=== PATIENT | female | born 1945 | race Caucasian/White ===

== ENCOUNTER 2018-08-27 12:25 | Observation (INO) | payer BC, MEDICARE ==
[2018-08-27] MEDS ORDERED: POTASSIUM CHLORIDE 20 MEQ TABLET.SA PO ONE ×3 (12:52→18:00)
--- NOTE | 2018-08-27 12:53 | ERNOTE ---
Medical Problem HPI - General Chief Complaint: General Assessment Time Seen by Provider: 08/27/18 12:42 Source: patient Exam Limitations: no limitations - Immun/Allergies/Home Medications Immunizations: IMMUNIZATION HX Immunizations Up to Date Yes History of Influenza Vaccine Yes Hx Pneumococcal Vaccination Yes Allergies/Adverse Reactions: Allergies azithromycin [From Zithromax Z-Rocky] Allergy (Mild, Verified 08/27/18 12:35) Hives sulfamethoxazole [From Bactrim] Adverse Reaction (Mild, Verified 08/27/18 12:35) "skin crawling" trimethoprim [From Bactrim] Adverse Reaction (Mild, Verified 08/27/18 12:35) "skin crawling" Home Medications: HOME MEDICATIONS Multivitamins [Multivitamin Pierre] 1 cap PO DAILY 02/13/15 [Last Taken Unknown] blood sugar diagnostic strips See Dose Instructions .ROUTE .MEDSUPPLY #20 ea [Last Taken Unknown] clotrimazole 1 % topical cream 1 applic TP BID 02/21/18 [Last Taken Unknown] ferrous sulfate 325 mg (65 mg iron) tablet 325 mg PO DAILY tab 02/21/18 [Last Taken Unknown] lancets 23 gauge See Dose Instructions .ROUTE .MEDSUPPLY #25 ea 02/21/18 [Last Taken Unknown] melatonin 5 mg capsule 5 mg PO DAILY PRN cap 02/21/18 [Last Taken Unknown] biotin 5,000 mcg sublingual tablet 5,000 mcg SL DAILY 02/23/18 [Last Taken Unknown] albuterol sulfate HFA 90 mcg/actuation aerosol inhaler 2 puff IH Q3H PRN #8.5 g 05/04/18 [Last Taken Unknown] fluticasone 44 mcg/actuation HFA aerosol inhaler 2 inh IH BID #10.6 g 05/04/18 [Last Taken Unknown] fluticasone 50 mcg/actuation nasal spray,suspension 2 spray BRIGITTE DAILY #9.9 g 05/04/18 [Last Taken Unknown] ibuprofen 800 mg tablet 800 mg PO TID-QID PRN #30 tab 05/04/18 [Last Taken Unknown] loratadine 10 mg tablet 10 mg PO DAILY #30 tab 05/04/18 [Last Taken Unknown] lovastatin 40 mg tablet 40 mg PO QPM #30 tab 05/04/18 [Last Taken Unknown] diclofenac potassium 50 mg tablet 50 mg PO BID #60 tab 10/25/18 [Last Taken Unknown] promethazine 6.25 mg-codeine 10 mg/5 mL syrup 5 ml PO Q6H PRN #118 ml 06/17/18 [Last Taken Unknown] sertraline 50 mg tablet 50 mg PO DAILY #30 tab 07/06/18 [Last Taken Unknown] alprazolam 0.25 mg tablet 0.25 mg PO BID PRN #30 tab 07/20/18 [Last Taken Unknown] fexofenadine 60 mg-pseudoephedrine ER 120 mg tablet,ext.release,12 hr 1 tab PO BID PRN #60 tab 07/20/18 [Last Taken Unknown] ranitidine 300 mg tablet 300 mg PO HS #30 tab 08/09/18 [Last Taken Unknown] cefdinir 300 mg capsule 300 mg PO BID 10 Days #20 cap 08/26/18 [Last Taken Unknown] levothyroxine 25 mcg tablet 25 mcg PO DAILY #30 tab 08/26/18 [Last Taken Unknown] potassium chloride ER 20 mEq tablet,extended release 20 meq PO TID #90 tab 08/26/18 [Last Taken Unknown] - History of Present History Narrative: Patient has not felt well since 08/13/18 (two weeks), slight cough, no appetite, no vomiting or diarrhea. She saw her doctor yesterday, had labs drawn and was started on cefdinir for sinusitis (did not have the CXR done that was ordered nor was able to give urine sample). She has had two doses of the antibiotic which she tolerated well except for loose stools. She was later called and told that her potassium was low too, tried potassium pills and liquid (without food) and has not been able to keep those down. She is coming to the ER for treatment of her low potassium Review of Systems - Review of Systems Constitutional: Present: weakness, malaise. Absent: fever, chills ENT: Absent: nose congestion, sore throat Respiratory: Present: cough. Absent: shortness of breath Cardiology: Absent: chest pain, palpitations Gastrointestinal/Abdominal: Absent: nausea, vomiting, diarrhea, abdominal pain Genitourinary: Absent: frequency, dysuria Neurological: Absent: headache Medical History (Last Reviewed 08/27/18 @ 14:22 by Loida Hope MD) Anxiety (Acute) worsening symptoms Anxiety disorder Onset Date: Unknown History of pelvic fracture Onset Date: Unknown Type 2 diabetes mellitus Onset Date: Unknown Alcoholism Onset Date: Unknown Arthritis Onset Date: Unknown Asthma, intermittent Onset Date: ~05/31/12 COPD (chronic obstructive pulmonary disease) Onset Date: ~04/03/14 GERD (gastroesophageal reflux disease) Onset Date: Unknown Hypovitaminosis D Onset Date: Unknown Anemia Onset Date: ~05/12/12 [place] teeth extracted Onset Date: ~1998 Surgical History: Surgical History (Last Reviewed 08/27/18 @ 14:22 by Loida Hope MD) History of total knee arthroplasty Onset Date: ~2003 left 2003, right 2014 Hx of cataract surgery Onset Date: Unknown bilateral eyes Family History: Family History (Last Reviewed 08/27/18 @ 12:36 by Susan Gilman RN) Father Heart disease at age 70's Mother Hypertension Cancer Social History: Preferred Language Estonian Smoking Status Never smoker Abuse History No History of abuse Psych History Hx of Anxiety,Hx of Violent Behavior,Currently on Meds Alcohol Use none Drug Use none (Last Updated 08/26/18 @ 12:59 by Jazmin Bañuelos MD) No Social History Section defined Physical Exam - Physical Exam General Appearance: Present: wd/wn, alert, no apparent distress Eye Exam: Normal inspection: bilateral Ears, Nose, Throat: Present: normal ENT inspection, normal pharynx Respiratory: Present: no respiratory distress, normal breath sounds, no accessory muscle use, chest nontender, lungs clear Cardiovascular/Chest: Present: regular rate, rhythm, no murmur, normal peripheral pulses Gastrointestinal/Abdominal: Present: normal bowel sounds, nontender, nondistended, soft Neurological Exam: Present: alert, oriented, normal mood/affect Skin Exam: Present: normal color, warm/dry Progress - Results and Orders Patient's Lab Results:: I have reviewed the patient's lab results. - Vital Signs Patient's Vital Signs:: I have reviewed the patient's vital signs. Vital Signs: Vital Signs 08/27/18 12:30 08/27/18 12:38 Temperature 36.2 C Pulse Rate 115 H 121 H Respiratory Rate 18 Blood Pressure 109/74 O2 Sat by Pulse Oximetry 92 L - EKG EKG: NSR - sinustachycardia, RBBB - incomplete, nonspecific ST T wave changes EKG read: Interp. by me - X-Ray X-Ray #1 X-Ray: chest - right middle lobe infiltrate Interpretation: Reviewed by me - Progress/Reassessment Chief Complaint: General Assessment Progress Note-Subjective: 08/27/18 14:00 discussed test results with patient,offered admission, patient agreed was able to tolerate KCl crushed with apple sauce PSI score 61, class II 08/27/18 14:04 discussed with irina Miranda to admit for observation as patient is hypoxic start levaquin per protocol as patient is allergic to zithromax irina to give oral steroids Departure Clinical Impression: Hypoxemia, Hypokalemia Pneumonia Qualifiers: Pneumonia type: due to unspecified organism Laterality: right Lung location: middle lobe of lung Qualified Code(s): J18.1 - Lobar pneumonia, unspecified organism - Departure Disposition: Still a patient Condition: Stable
[2018-08-27 13:03] LABS: Hematocrit 35.1 % (37.0-47.0); Hemoglobin 12.4 gm/dL (12.5-16.0); Mean Cell Volume 87.8 fl (78-100); Mean Corpuscular Hgb Conc 35.3 g/dl (32-36); Mean Platelet Volume 10.1 fl (8-12.5); Neutrophil # 11.4 K/mm3 (1.3-6.0); Neutrophil % 79.5 % (42-75.0); Platelet Count 461 K/mm3 (150-450); Red Cell Distribution Width 12.8 % (11.5-14.0); White Blood Count 14.3 K/mm3 (4.0-10.5)
[2018-08-27 13:20] LABS: Albumin * 2.7 gm/dl (3.4-5.0); Anion Gap 16.8 mmol/L (6.8-13.8); BUN/Creatinine Ratio 12.8 (9.0-21.6); Bilirubin, Total 0.6 mg/dL (0.0-1.1); Ca. Corrected For Albumin 9.6 mg/dL (8.4-10.2); Calcium * 8.9 mg/dL (7.9-10.9); Carbon Dioxide 20.9 mmol/L (24-32.6); Potassium 2.7 mmol/L (3.4-4.6); Total Protein 7.7 gm/dL (6.2-8.2)
[2018-08-27 13:29] LABS: Urine Bilirubin 1 mg/dl (NEGATIVE); Urine Blood Negative /ul (NEGATIVE); Urine Ketone 5 mg/dL (NEGATIVE); Urine Nitrite Negative (NEGATIVE); Urine Protein 15 mg/dL (NEGATIVE); Urine Specific Gravity 1.025 SP.GR. (1.005-1.010); Urine Urobilinogen Normal (NORMAL)
[2018-08-27 13:41] LABS: Urine Appearance Clear (CLEAR); Urine Bacteria TRACE; Urine Color Yellow; Urine RBC 0-5 /hpf (0-5); Urine WBC 0-5 /hpf (0-5)
[2018-08-27 13:42] LABS: Urine Mucus Many - 3+
[2018-08-27] MEDS ORDERED: ALBUTEROL SULFATE 2.5 MG/0.5 ML VIAL.NEB IH ONE (14:12)
[2018-08-27] MEDS ORDERED: predniSONE 20 MG TABLET PO ONE (14:12)
[2018-08-27] MEDS ORDERED: LEVOFLOXACIN IN DEXTROSE 5 % 750 MG/150 ML BAG IV SCH (14:30)
--- NOTE | 2018-08-27 15:32 | HP ---
Chief Complaint - Chief Complaint Date of Service: 08/27/18 Time of Service: 15:32 Chief Complaint: low potassium History of Present Illness: Patient states her symptoms began on August 13, 2018 when she noted not feeling well with decreased appetite, and fever of 101. She saw her doctor, Dr. Bañuelos yesterday and was started on Ceftin ear for sinusitis. Chest x-ray was ordered but but was not completed. She has had 2 doses of the antibiotic, she tolerated it well except for loose stools. Her doctor also informed her that her potassium level was low and was prescribed potassium supplementation she did not tolerate the medication and was vomiting. She presented to the emergency room today because of her low potassium. On presentation chest x-ray was done which showed a right middle lobe infiltrate. In the emergency department she was found to be hypoxic with an oxygen level of 89% on room air. She does not use oxygen at home. She states she had been having shortness of breath with exertion at home. She was given 40 mEq of potassium in the emergency room crushed in applesauce and tolerated it well. Medical History (Last Reviewed 08/27/18 @ 15:40 by Rachel Ayala RN) Anxiety (Acute) worsening symptoms Anxiety disorder Onset Date: Unknown History of pelvic fracture Onset Date: Unknown Type 2 diabetes mellitus Onset Date: Unknown Alcoholism Onset Date: Unknown Arthritis Onset Date: Unknown Asthma, intermittent Onset Date: ~05/31/12 COPD (chronic obstructive pulmonary disease) Onset Date: ~04/03/14 GERD (gastroesophageal reflux disease) Onset Date: Unknown Hypovitaminosis D Onset Date: Unknown Anemia Onset Date: ~05/12/12 [place] teeth extracted Onset Date: ~1998 Surgical History: Surgical History (Last Reviewed 08/27/18 @ 15:40 by Rachel Ayala RN) History of total knee arthroplasty Onset Date: ~2003 left 2004, right 2014 Hx of cataract surgery Onset Date: Unknown bilateral eyes Family History: Family History (Last Reviewed 08/27/18 @ 15:40 by Rachel Ayala RN) Father Heart disease at age 70's Mother Hypertension Cancer Social History: Preferred Language Romanian Smoking Status Never smoker Abuse History No History of abuse Psych History Hx of Anxiety,Hx of Violent Behavior,Currently on Meds Alcohol Use none Drug Use none (Last Updated 08/26/18 @ 12:59 by Jazmin Bañuelos MD) No Social History Section defined Review Of Systems (GEN) - Review of Systems Generalized/Overall Review: Present: Malaise EENTM: Present: No Symptoms Reported Respiratory: Present: Shortness of Breath. Absent: Cough Cardiac: Absent: Chest Pain Abdominal: Absent: Nausea, Vomiting, Abdominal Pain Genitourinary: Present: No Symptoms Reported Neurological: Absent: Headache Immunizations: IMMUNIZATION HX Immunizations Up to Date Yes History of Influenza Vaccine Yes Hx Pneumococcal Vaccination Yes Allergies/Adverse Reactions: Allergies Allergy/AdvReac Type Severity Reaction Status Date / Time azithromycin Allergy Mild Hives Verified 08/27/18 12:35 [From Zithromax Z-Rocky] sulfamethoxazole AdvReac Mild "skin Verified 08/27/18 12:35 [From Bactrim] crawling" trimethoprim [From Bactrim] AdvReac Mild "skin Verified 08/27/18 12:35 crawling" Home Medications: HOME MEDICATIONS Multivitamins [Multivitamin Pierre] 1 cap PO DAILY 02/13/15 [Last Taken Unknown] blood sugar diagnostic strips See Dose Instructions .ROUTE .MEDSUPPLY #20 ea 02/21/18 [Last Taken Unknown] clotrimazole 1 % topical cream 1 applic TP BID 02/21/18 [Last Taken Unknown] ferrous sulfate 325 mg (65 mg iron) tablet 325 mg PO DAILY tab 02/21/18 [Last Taken Unknown] lancets 23 gauge See Dose Instructions .ROUTE .MEDSUPPLY #25 ea 02/21/18 [Last Taken Unknown] melatonin 5 mg capsule 5 mg PO DAILY PRN cap 02/21/18 [Last Taken Unknown] biotin 5,000 mcg sublingual tablet 5,000 mcg SL DAILY 02/23/18 [Last Taken Unknown] albuterol sulfate HFA 90 mcg/actuation aerosol inhaler 2 puff IH Q3H PRN #8.5 g 05/04/18 [Last Taken Unknown] fluticasone 44 mcg/actuation HFA aerosol inhaler 2 inh IH BID #10.6 g 05/04/18 [ Last Taken Unknown] fluticasone 50 mcg/actuation nasal spray,suspension 2 spray BRIGITTE DAILY #9.9 g 05/04/18 [Last Taken Unknown] ibuprofen 800 mg tablet 800 mg PO TID-QID PRN #30 tab 05/04/18 [Last Taken Unknown] loratadine 10 mg tablet 10 mg PO DAILY #30 tab 05/04/18 [Last Taken Unknown] lovastatin 40 mg tablet 40 mg PO QPM #30 tab 05/04/18 [Last Taken Unknown] diclofenac potassium 50 mg tablet 50 mg PO BID #60 tab 06/17/18 [Last Taken Unknown] promethazine 6.25 mg-codeine 10 mg/5 mL syrup 5 ml PO Q6H PRN #118 ml 06/17/18 [Last Taken Unknown] sertraline 50 mg tablet 50 mg PO DAILY #30 tab 07/06/18 [Last Taken Unknown] alprazolam 0.25 mg tablet 0.25 mg PO BID PRN #30 tab 07/20/18 [Last Taken Unknown] fexofenadine 60 mg-pseudoephedrine ER 120 mg tablet,ext.release,12 hr 1 tab PO BID PRN #60 tab 07/20/18 [Last Taken Unknown] ranitidine 300 mg tablet 300 mg PO HS #30 tab 08/09/18 [Last Taken Unknown] cefdinir 300 mg capsule 300 mg PO BID 10 Days #20 cap 08/26/18 [Last Taken Unknown] levothyroxine 25 mcg tablet 25 mcg PO DAILY #30 tab 08/26/18 [Last Taken Unknown] potassium chloride ER 20 mEq tablet,extended release 20 meq PO TID #90 tab 08/26/18 [Last Taken Unknown] Exam - Exam Vital Signs: Vital Signs - Last Taken Temp 36.2 C 08/27/18 12:30 Pulse 117 H 08/27/18 14:18 Resp 16 08/27/18 14:18 BP 117/93 H 08/27/18 14:05 Pulse Ox 91 L 08/27/18 14:18 Constitutional: Present: Alert, Cooperative ENT Exam: Present: hearing grossly normal Neck: Absent: lymphadenopathy (R), lymphadenopathy (L) Back Exam: Present: normal inspection Respiratory: Present: lungs clear. Absent: crackles, rhonchi, wheezing Cardiovascular/Chest: Present: regular rate, rhythm, no edema, no murmur Peripheral Pulses: dorsalis-pedis (R): 2+, dorsalis-pedis (L): 2+ Abdomen: Present: Normal bowel sounds, soft, nontender Extremity: Present: non-tender, no pedal edema Skin Exam: Present: normal color, warm/dry Diagnostic Studies: Abnormal Lab Results 08/27/18 08/27/18 08/27/18 Range/Units 12:54 12:54 13:11 WBC 14.3 H (4.0-10.5) K/mm3 RBC 4.00 L (4.2-5.4) M/mm3 Hgb 12.4 L (12.5-16.0) gm/dL Hct 35.1 L (37.0-47.0) % Plt Count 461 H (150-450) K/mm3 Immature Gran % (Auto) 0.50 H (0.001-0.429) % Immature Gran # (Auto) 0.07 H (0.000-0.0310) K/mm3 Neutrophils % 79.5 H (42-75.0) % Lymphocytes % 12.0 L (20-51) % Neutrophils # 11.4 H (1.3-6.0) K/mm3 Potassium 2.7 L (3.4-4.6) mmol/L Carbon Dioxide 20.9 L (24-32.6) mmol/L Anion Gap 16.8 H (6.8-13.8) mmol/L Random Glucose 159 H (70-110) mg/dL ALT 11 L (19-67) U/L Albumin 2.7 L (3.4-5.0) gm/dl Urine Protein 15 H (NEGATIVE) mg/dL Urine Bilirubin 1 H (NEGATIVE) mg/dl Urine Mucus Many - 3+ H (NONE) Laboratory Results WBC 14.3 K/mm3 (4.0-10.5) H 08/27/18 12:54 RBC 4.00 M/mm3 (4.2-5.4) L 08/27/18 12:54 Hgb 12.4 gm/dL (12.5-16.0) L 08/27/18 12:54 Hct 35.1 % (37.0-47.0) L 08/27/18 12:54 MCV 87.8 fl (78-100) 08/27/18 12:54 MCH 31.0 pg (27-31) 08/27/18 12:54 MCHC 35.3 g/dl (32-36) 08/27/18 12:54 RDW 12.8 % (11.5-14.0) 08/27/18 12:54 Plt Count 461 K/mm3 (150-450) H 08/27/18 12:54 MPV 10.1 fl (8-12.5) 08/27/18 12:54 Immature Gran % (Auto) 0.50 % (0.001-0.429) H 08/27/18 12:54 Immature Gran # (Auto) 0.07 K/mm3 (0.000-0.0310) H 08/27/18 12:54 Neutrophils % 79.5 % (42-75.0) H 08/27/18 12:54 Lymphocytes % 12.0 % (20-51) L 08/27/18 12:54 Monocytes % 7.1 % (0.0-9) 08/27/18 12:54 Eosinophils % 0.6 % (0.0-3.0) 08/27/18 12:54 Basophils % 0.3 % (0.0-1.0) 08/27/18 12:54 Nucleated RBC % 0.0 k/mm3 (0-1) 08/27/18 12:54 Neutrophils # 11.4 K/mm3 (1.3-6.0) H 08/27/18 12:54 Lymphocytes # 1.72 k/mm3 (1.5-3.5) 08/27/18 12:54 Monocytes # 1.0 k/mm3 (0.0-1.0) 08/27/18 12:54 Eosinophils # 0.1 k/mm3 (0.0-0.7) 08/27/18 12:54 Absolute Basophils 0.1 k/mm3 (0.0-0.1) 08/27/18 12:54 Sodium 133 mmol/L (132-142) 08/27/18 12:54 Plasma Sodium 134 mmol/L (130-142) 08/27/18 12:54 Potassium 2.7 mmol/L (3.4-4.6) L 08/27/18 12:54 Chloride 98 mmol/L (97-106) 08/27/18 12:54 Carbon Dioxide 20.9 mmol/L (24-32.6) L 08/27/18 12:54 Anion Gap 16.8 mmol/L (6.8-13.8) H 08/27/18 12:54 BUN 11 mg/dL (3-23) 08/27/18 12:54 Creatinine 0.86 mg/dL (0.4-1.4) 08/27/18 12:54 Est GFR (Non-Af Amer) 69 mL/min (60-130) 08/27/18 12:54 BUN/Creatinine Ratio 12.8 (9.0-21.6) 08/27/18 12:54 Random Glucose 159 mg/dL (70-110) H 08/27/18 12:54 Calcium 8.9 mg/dL (7.9-10.9) 08/27/18 12:54 Calcium Adj for Albumin 9.6 mg/dL (8.4-10.2) 08/27/18 12:54 Total Bilirubin 0.6 mg/dL (0.0-1.1) 08/27/18 12:54 AST 15 U/L (0-48) 08/27/18 12:54 ALT 11 U/L (19-67) L 08/27/18 12:54 Alkaline Phosphatase 107 U/L (50-170) 08/27/18 12:54 Total Protein 7.7 gm/dL (6.2-8.2) 08/27/18 12:54 Albumin 2.7 gm/dl (3.4-5.0) L 08/27/18 12:54 Urine Color Yellow 08/27/18 13:11 Urine Appearance Clear (CLEAR) 08/27/18 13:11 Urine pH 6.0 pH (5.0-7.0) 08/27/18 13:11 Ur Specific [place] 1.025 SP.GR. (1.005-1.010) 08/27/18 13:11 Urine Protein 15 mg/dL (NEGATIVE) H 08/27/18 13:11 Urine Glucose (UA) Negative mg/dL (NEGATIVE) 08/27/18 13:11 Urine Ketones 5 mg/dL (NEGATIVE) 08/27/18 13:11 Urine Blood Negative /ul (NEGATIVE) 08/27/18 13:11 Urine Nitrate Negative (NEGATIVE) 08/27/18 13:11 Urine Bilirubin 1 mg/dl (NEGATIVE) H 08/27/18 13:11 Urine Ictotest Negative (NEGATIVE) 08/27/18 13:11 Prot Sulfosalicylic Acd Negative mg/dL (0) 08/27/18 13:11 Urine Urobilinogen Normal EU/dl (NORMAL) 08/27/18 13:11 Ur Leukocyte Esterase Negative /ul (NEGATIVE) 08/27/18 13:11 Urine RBC 0-5 /hpf (0-5) 08/27/18 13:11 Urine WBC 0-5 /hpf (0-5) 08/27/18 13:11 Ur Epithelial Cells 0-5 /hpf (0-5) 08/27/18 13:11 Urine Bacteria Trace (NONE) 08/27/18 13:11 Urine Mucus Many - 3+ (NONE) H 08/27/18 13:11 Urine Culture Comments No culture indicated 08/27/18 13:11 Assessment/Plan - Narrative Narrative: This is a 73-year-old female who presents with hypoxia and hypokalemia found to have a right middle lobe infiltrate on chest x-ray and mild leukocytosis. She has is being admitted to the observation unit for community acquired pneumonia. She was started on Levaquin in the emergency room because she has an allergy to azithromycin. She has also been started on oxygen via nasal cannula. - Assessment/Plan (1) Pneumonia Assessment: Chest x-ray showed right middle lobe infiltrate continue with Levaquin and oxygen supplementation to keep her oxygen level greater than 92%. Start incentive spirometer. Problem: Acute Qualifiers: Pneumonia type: due to unspecified organism Laterality: right Lung location: middle lobe of lung Qualified Code(s): J18.1 - Lobar pneumonia, unspecified organism (2) Hypoxemia Assessment: Likely secondary to her pneumonia continue with oxygen supplementation via nasal cannula to keep oxygen level greater than 92%. Problem: Acute (3) Hypokalemia Assessment: Continue with potassium supplementation as needed and check her potassium level in the morning. Problem: Acute (4) Type 2 diabetes mellitus Assessment: She is currently not on any medication at home. Start her on a diabetic diet Problem: Chronic Qualifiers: Diabetes mellitus custodial insulin use: without custodial use (5) Anxiety disorder Assessment: Continue home medications. Problem: Chronic (6) Depression Assessment: Continue home medication. Problem: Chronic
[2018-08-27] MEDS ORDERED: ALBUTEROL SULFATE 2.5 MG/0.5 ML VIAL.NEB IH PRN ×2 (16:03→16:45)
[2018-08-27] MEDS ORDERED: ALBUTEROL SULFATE 200 PUFF INHALER IH PRN (16:24)
[2018-08-27] MEDS ORDERED: ALPRAZolam 0.25 MG TABLET PO PRN (16:24)
[2018-08-27] MEDS: CLOTRIMAZOLE 15 APPL TUBE TP SCH (20:34)
[2018-08-28] MEDS ORDERED: LEVOTHYROXINE SODIUM 25 MCG TABLET PO SCH (07:00)
[2018-08-28 07:05] LABS: Hematocrit 33.1 % (37.0-47.0); Hemoglobin 11.3 gm/dL (12.5-16.0); Mean Cell Volume 90.2 fl (78-100); Mean Corpuscular Hemoglobin 30.8 pg (27-31); Mean Corpuscular Hgb Conc 34.1 g/dl (32-36); Mean Platelet Volume 10.5 fl (8-12.5); Neutrophil # 9.8 K/mm3 (1.3-6.0); Neutrophil % 83.3 % (42-75.0); Platelet Count 449 K/mm3 (150-450); Red Blood Count 3.67 M/mm3 (4.2-5.4); Red Cell Distribution Width 12.8 % (11.5-14.0); White Blood Count 11.7 K/mm3 (4.0-10.5)
[2018-08-28 07:23] LABS: Albumin * 2.6 gm/dl (3.4-5.0); Anion Gap 15.7 mmol/L (6.8-13.8); BUN/Creatinine Ratio 18.2 (9.0-21.6); Bilirubin, Total 0.4 mg/dL (0.0-1.1); Ca. Corrected For Albumin 10.2 mg/dL (8.4-10.2); Calcium * 9.4 mg/dL (7.9-10.9); Carbon Dioxide 22.2 mmol/L (24-32.6); Potassium 3.9 mmol/L (3.4-4.6); Total Protein 7.6 gm/dL (6.2-8.2)
[2018-08-28] MEDS: CLOTRIMAZOLE 15 APPL TUBE TP SCH (08:16)
[2018-08-28] MEDS ORDERED: SERTRALINE HCL 50 MG TABLET PO SCH (09:00)
[2018-08-28] MEDS ORDERED: LORATADINE 10 MG TABLET PO SCH (09:00)
[2018-08-28] MEDS ORDERED: FLUTICASONE PROPIONATE 120 SPRAY INHALER NS SCH (09:00)
[2018-08-28] MEDS ORDERED: DOXYCYCLINE HYCLATE 100 MG TABLET PO SCH (11:30)
--- NOTE | 2018-08-28 11:50 | DS ---
(1) Pneumonia Diagnosis(s): Symptoms improved denies shortness of breath and she is no longer on oxygen supplementation. He will transition her to oral doxycycline for a total of a 7- day course. Vitals are stable and she remains afebrile. Problem: Acute Qualifiers: Pneumonia type: due to unspecified organism Laterality: right Lung location: middle lobe of lung Qualified Code(s): J18.1 - Lobar pneumonia, u nspecified organism (2) Hypoxemia Diagnosis(s): Resolved, she is no longer requiring oxygen supplementation. Symptoms are likely secondary to the pneumonia. Problem: Resolved (3) Hypokalemia Diagnosis(s): Resolved with oral potassium supplementation. She will follow-up with her PCP regarding any further workup. Problem: Resolved (4) Type 2 diabetes mellitus Diagnosis(s): Stable continue with current home medication regimen. Problem: Chronic Qualifiers: Diabetes mellitus intermodal dispatcher insulin use: without intermodal dispatcher use (5) Anxiety disorder Diagnosis(s): Stable no changes in medication regimen. Problem: Chronic (6) Depression Diagnosis(s): Stable no changes in medication regimen. Problem: Chronic Description of Stay: This is a 73-year-old female with a past medical history of COPD, diabetes me llitus type 2, anxiety, depression who presented to the emergency department with complaints of low potassium. About 2 weeks prior to presentation she had feelings of malaise, fever, decreased appetite. 1-2 days prior to presentation she saw her primary care physician chest x-ray was ordered and she was found to have low potassium levels. She was prescribed potassium supplementation. When she tried to take the potassium she experienced nausea and vomiting therefore she decided to go to the emergency department. In the emergency department the results of her chest x-ray showed that she had a right middle lobe infiltrate. She was admitted to the observation unit for community-acquired pneumonia. She was started on Levaquin. She remained afebrile throughout her stay and her leukocytosis trended down. She will be discharged to home with no services required. She will be discharged discharged on doxycycline for 6 more days to complete a 7-day course of antibiotic therapy. She will follow-up with her primary care physician within 1-2 weeks of discharge. Repeat chest x-ray should be performed within the next 6-8 weeks to evaluate for resolution of the pneumonia. Procedures Performed: none Results and Findings: Lab Pending Results 08/27/18 12:54: WBC 14.3 H, RBC 4.00 L, Hgb 12.4 L, Hct 35.1 L, MCV 87.8, MCH 31.0, MCHC 35.3, RDW 12.8, Plt Count 461 H, MPV 10.1, Immature Gran % (Auto) 0.50 H, Immature Gran # (Auto) 0.07 H, Neutrophils % 79.5 H, Lymphocytes % 12.0 L, Monocytes % 7.1, Eosinophils % 0.6, Basophils % 0.3, Nucleated RBC % 0.0, Neutrophils # 11.4 H, Lymphocytes # 1.72, Monocytes # 1.0, Eosinophils # 0.1, Absolute Basophils 0.1 08/27/18 12:54: Sodium 133, Plasma Sodium 134, Potassium 2.7 L, Chloride 98, Carbon Dioxide 20.9 L, Anion Gap 16.8 H, BUN 11, Creatinine 0.86, Est GFR (Non- Af Amer) 69, BUN/Creatinine Ratio 12.8, Random Glucose 159 H, Calcium 8.9, Calcium Adj for Albumin 9.6, Total Bilirubin 0.6, AST 15, ALT 11 L, Alkaline Phosphatase 107, Total Protein 7.7, Albumin 2.7 L 08/27/18 13:11: Urine Color Yellow, Urine Appearance Clear, Urine pH 6.0, Ur Specific [place] 1.025, Urine Protein 15 H, Urine Glucose (UA) Negative, Urine Ketones 5, Urine Blood Negative, Urine Nitrate Negative, Urine Bilirubin 1 H, Urine Ictotest Negative, Prot Sulfosalicylic Acd Negative, Urine Urobilinogen Normal, Ur Leukocyte Esterase Negative, Urine RBC 0-5, Urine WBC 0-5, Ur Epithelial Cells 0-5, Urine Bacteria Trace, Urine Mucus Many - 3+ H, Urine Culture Comments No culture indicated 08/28/18 06:00: WBC 11.7 H, RBC 3.67 L, Hgb 11.3 L, Hct 33.1 L, MCV 90.2, MCH 30.8, MCHC 34.1, RDW 12.8, Plt Count 449, MPV 10.5, Immature Gran % (Auto) 0.70 H, Immature Gran # (Auto) 0.08 H, Neutrophils % 83.3 H, Lymphocytes % 10.2 L, Monocytes % 5.7, Eosinophils % 0.0, Basophils % 0.1, Nucleated RBC % 0.0, Neutrophils # 9.8 H, Lymphocytes # 1.20 L, Monocytes # 0.7, Eosinophils # 0.0, Absolute Basophils 0.0 08/28/18 07:00: Sodium 134, Plasma Sodium 135, Potassium 3.9 D, Chloride 100, Carbon Dioxide 22.2 L, Anion Gap 15.7 H, BUN 16, Creatinine 0.88, Est GFR (Non- Af Amer) 67, BUN/Creatinine Ratio 18.2, Random Glucose 163 H, Calcium 9.4, Calcium Adj for Albumin 10.2, Total Bilirubin 0.4, AST 20, ALT 12 L, Alkaline Phosphatase 98, Total Protein 7.6, Albumin 2.6 L Discharge Location: Home Disposition: Home self-care Condition: Stable Discharge Activity: Activity as tolerated Discharge Diet: Consistent carbs Referrals: Jazmin Bañuelos MD [Primary Care Provider] - Prescriptions (Any new or edited meds): Doxycycline Hyclate [Vibratab] 100 mg PO BID 6 Days #11 tablet Complete Home Medications List: Complete Home Medication List: Multivitamins [Multivitamin Pierre] 1 cap PO DAILY 02/13/15 blood sugar diagnostic strips See Dose Instructions .ROUTE .MEDSUPPLY #20 ea 02/21/18 clotrimazole 1 % topical cream 1 applic TP BID 02/21/18 ferrous sulfate 325 mg (65 mg iron) tablet 325 mg PO DAILY tab 02/21/18 lancets 23 gauge See Dose Instructions .ROUTE .MEDSUPPLY #25 ea 02/21/18 melatonin 5 mg capsule 5 mg PO DAILY PRN cap 02/21/18 biotin 5,000 mcg sublingual tablet 5,000 mcg SL DAILY 02/23/18 albuterol sulfate HFA 90 mcg/actuation aerosol inhaler 2 puff IH Q3H PRN #8.5 g 05/04/18 fluticasone 44 mcg/actuation HFA aerosol inhaler 2 inh IH BID #10.6 g 05/04/18 fluticasone 50 mcg/actuation nasal spray,suspension 2 spray BRIGITTE DAILY #9.9 g 05/04/18 ibuprofen 800 mg tablet 800 mg PO TID-QID PRN #30 tab 05/04/18 loratadine 10 mg tablet 10 mg PO DAILY #30 tab 05/04/18 lovastatin 40 mg tablet 40 mg PO QPM #30 tab 05/04/18 diclofenac potassium 50 mg tablet 50 mg PO BID #60 tab 06/17/18 promethazine 6.25 mg-codeine 10 mg/5 mL syrup 5 ml PO Q6H PRN #118 ml 06/17/18 sertraline 50 mg tablet 50 mg PO DAILY #30 tab 07/06/18 alprazolam 0.25 mg tablet 0.25 mg PO BID PRN #30 tab 07/20/18 fexofenadine 60 mg-pseudoephedrine ER 120 mg tablet,ext.release,12 hr 1 tab PO BID PRN #60 tab 07/20/18 ranitidine 300 mg tablet 300 mg PO HS #30 tab 08/09/18 levothyroxine 25 mcg tablet 25 mcg PO DAILY #30 tab 08/26/18 potassium chloride ER 20 mEq tablet,extended release 20 meq PO TID #90 tab 08/26/18 Doxycycline Hyclate [Vibratab] 100 mg PO BID 6 Days #11 tablet 08/28/18
[2018-08-28 12:42] VITALS: BP 133/63
== END 2018-08-28 12:45 | disposition home or self-care (01) ==
LOC: MS 12:25 → ER 12:25 → MS 15:07
PROVIDERS: ADMIT Internal Medicine; ATTEND Internal Medicine
DX: R50.9 Fever, unspecified
CPT/HCPCS: 36415; 71020; 71046; 80053; 81001; 85025; 87040; 93005; 94640; 94664; 96365; 96366; 99285; G0378